=== PATIENT | female | born 1970 | race Caucasian/White ===

== ENCOUNTER 2019-04-09 17:57 | Emergency (ER) | payer BC ==
[2019-04-09 18:21] VITALS: BMI 24.0
--- NOTE | 2019-04-09 19:41 | PDOC ---
History of Present Illness <LowePaola - Last Filed: 04/10/19 01:46> - History of Present Illness Initial Comments: 04/09/19 20:01 48y/o F with a hx of TB (10yrs ago underwent 6mths of treatment) presents to the ED with 6 days of dry cough and shortness of breath.She does not have a hx of smoking. She has pressure like tightness in her chest and throbbing pain in her left upper back. The pain is exacerbated by breathing and movement and relieved with rest. She had an x-ray done at an urgent care center today which showed a left sided mass and she was advised to come to the ED. She has had fever, chills, myalgias, diaphoresis and nausea at home.She denies any vomiting, dysuria, hematuria. leg swelling,diarrhea or blood in her stool. <Maryann Doyle - Last Filed: 04/10/19 02:38> - General Chief Complaint: Shortness of Breath Stated Complaint: DIFFICULTY BREATHING Time Seen by Provider: 04/09/19 19:09 Past History <MynorPaola - Last Filed: 04/10/19 01:46> - Past Medical History COPD: No GI Disorders: Yes (GERD) - Suicide/Smoking/Psychosocial Hx Smoking History: Never smoked Have you smoked in the past 12 months: No Information on smoking cessation initiated: No Hx Alcohol Use: No Drug/Substance Use Hx: No <Maryann Doyle - Last Filed: 04/10/19 02:38> - Past Medical History Allergies/Adverse Reactions: Allergies Allergy/AdvReac Type Severity Reaction Status Date / Time morphine Allergy Verified 04/09/19 18:11 Home Medications: Ambulatory Orders NK [No Known Home Medication] 04/10/19 Review of Systems - Review of Systems Constitutional: Yes: Chills, Diaphoresis, Fever, Loss of Appetite HEENTM: No: Ear Discharge, Nose Congestion, Mouth Swelling Respiratory: Yes: See HPI Cardiac (ROS): Yes: Lightheadedness ABD/GI: Yes: Nausea, Poor Appetite, Abdominal cramping. No: Constipated, Diarrhea, Vomiting : No: Burning, Dysuria, Frequency, Hematuria Musculoskeletal: No: Back Pain Integumentary: No: Dryness, Erythema, Flushing Neurological: Yes: Headache All Other Systems: Reviewed and Negative <Maryann Doyle - Last Filed: 04/10/19 02:38> *Physical Exam - Vital Signs Last Vital Signs Temp Pulse Resp BP Pulse Ox 98.5 F 94 H 16 113/77 100 04/09/19 17:57 04/09/19 17:57 04/09/19 17:57 04/09/19 17:57 04/09/19 17:57 <Paola Lowe - Last Filed: 04/10/19 01:46> - Vital Signs Last Vital Signs Temp Pulse Resp BP Pulse Ox 98.5 F 94 H 16 113/77 100 04/09/19 17:57 04/09/19 17:57 04/09/19 17:57 04/09/19 17:57 04/09/19 17:57 - Physical Exam General Appearance: Yes: Nourished, Appropriately Dressed HEENT: positive: Normal Voice. negative: Scleral Icterus (R), Scleral Icterus ( L), Nasal Congestion, Rhinorrhea Neck: positive: Trachea midline, Supple. negative: Tender, Lymphadenopathy (R) Respiratory/Chest: positive: Normal Breath Sounds, Other (minimal expiratory wheezing on the left side.). negative: Respiratory Distress, Rapid RR, Decreased Breath Sounds, Rales, Rhonchi, Stridor Cardiovascular: positive: Regular Rhythm, Regular Rate, S1, S2. negative: Edema , JVD, Murmur Gastrointestinal/Abdominal: positive: Normal Bowel Sounds, Soft, Tenderness. negative: Organomegaly, Pulsatile Mass, Guarding, Rebound Extremity: positive: Normal Inspection, Normal Range of Motion. negative: Coldness, Cyanosis, Swelling Integumentary: positive: Normal Color, Dry, Warm Neurologic: positive: Fully Oriented, Alert, Normal Mood/Affect, Normal Response <Maryann Doyle - Last Filed: 04/10/19 02:38> ED Treatment Course - LABORATORY CBC & Chemistry Diagram: 04/09/19 20:45 04/09/19 20:45 - ADDITIONAL ORDERS Additional order review: Laboratory Results 04/09/19 04/09/19 20:45 20:45 Sodium 137 Potassium 4.2 Chloride 105 Carbon Dioxide 26 Anion Gap 6 L BUN 9.4 Creatinine 0.7 Est GFR (CKD-EPI)AfAm 120.43 Est GFR (CKD-EPI)NonAf 103.90 Random Glucose 77 Calcium 8.8 Total Bilirubin 0.5 AST 13 L ALT 18 Alkaline Phosphatase 81 Creatine Kinase 48 Troponin I < 0.02 Total Protein 7.1 Albumin 3.4 Urine HCG, Qual Negative 04/09/19 20:45 RBC 4.71 MCV 86.4 MCHC 34.3 RDW 13.6 MPV 6.8 L Neutrophils % 69.8 Lymphocytes % 17.6 Monocytes % 11.4 H Eosinophils % 0.8 Basophils % 0.4 - Medications Given in the ED: ED Medications Discontinued Medications Generic Name Dose Route Start Last Admin Trade Name Freq PRN Reason Stop Dose Admin Acetaminophen 1,000 mg 04/09/19 19:59 04/09/19 21:00 Ofirmev Injection - IVPB 04/09/19 20:00 1,000 mg ONCE ONE Administration Sodium Chloride 1,000 mls @ 1,000 mls/hr 04/09/19 19:59 04/09/19 20:59 Normal Saline - IV 04/09/19 20:58 1,000 mls/hr ASDIR STA Administration <Paola Lowe - Last Filed: 04/10/19 01:46> - LABORATORY CBC & Chemistry Diagram: 04/09/19 20:45 04/09/19 20:45 <Maryann Doyle - Last Filed: 04/10/19 02:38> Medical Decision Making - Medical Decision Making 04/09/19 20:32 48 y/o F with hx of TB presenting with SOB and dry cough Labs/Imaging cbc, cmp, cardiac profile , hcg, ekg acetaminophen for pain and IV fluids 04/09/19 22:51 ct chest with contrast ordered, pt. going to CT. 04/09/19 23:28 CXR shows apical hyperlucent area in left lung. Awaiting CT results at this time. Radiologist recommends follow up with senior [employer] administrator for biopsy of left apical lung mass. Results were explained to the patient and she was given a copy of the imaging report. she was advised to follow up with her senior [employer] administrator. Discharging home 04/10/19 02:36 <Maryann Doyle - Last Filed: 04/10/19 02:38> *DC/Admit/Observation/Transfer <Paola Lowe - Last Filed: 04/10/19 01:46> <Maryann Doyle - Last Filed: 04/10/19 02:38> Diagnosis at time of Disposition: Lung mass - Discharge Dispostion Disposition: HOME Condition at time of disposition: Stable - Referrals Referrals: Kojo Mccormick MD, MD [Staff Physician] - - Patient Instructions Printed Discharge Instructions: Needle Biopsy of the Lung and Pleura
[2019-04-09] MEDS ORDERED: ACETAMINOPHEN 1000 MG/100 ML VIAL (NON FORMULARY) IVPB ONE (19:59)
[2019-04-09] MEDS ORDERED: SODIUM CHLORIDE 1,000 ML IV STA (19:59)
[2019-04-09] MEDS ORDERED: ACETAMINOPHEN INJECTION 100 ML IVPB ONE (20:26)
[2019-04-09 22:16] LABS: BASO % 0.4 % (0-2.0); EOS % 0.8 % (0-4.5); HEMATOCRIT 40.7 % (32.4-45.2); HEMOGLOBIN 13.9 GM/dL (10.7-15.3); LYMPH % 17.6 % (8-40); MCH 29.6 pg (25.7-33.7); MCHC 34.3 g/dl (32.0-36.0); MEAN CELL VOLUME 86.4 fl (80-96); MEAN PLT VOLUME 6.8 fl (7.5-11.1); MONO % 11.4 % (3.8-10.2); NEUT % 69.8 % (42.8-82.8); PLATELET COUNT 407 K/MM3 (134-434); RBC 4.71 M/mm3 (3.60-5.2); RDW 13.6 % (11.6-15.6); WHITE BLOOD COUNT 8.1 K/mm3 (4.0-10.0)
[2019-04-09 22:18] LABS: ALBUMIN 3.4 g/dl (3.4-5.0); ALK PHOS 81 U/L (45-117); ANION GAP 6 MMOL/L (8-16); BILIRUBIN,TOTAL 0.5 mg/dL (0.2-1); BLOOD UREA NITROGEN 9.4 mg/dL (7-18); CALCIUM 8.8 mg/dL (8.5-10.1); CHLORIDE 105 mmol/L (98-107); CO2 26 mmol/L (21-32); CREATININE 0.7 mg/dL (0.55-1.3); GLUCOSE,RANDOM 77 mg/dL (74-106); POTASSIUM 4.2 mmol/L (3.5-5.1); SGOT/AST 13 U/L (15-37); SGPT/ALT 18 U/L (13-61); SODIUM 137 mmol/L (136-145); TOT PROT 7.1 g/dl (6.4-8.2)
--- NOTE | 2019-04-10 01:48 | PDOC ---
Documentation entered by Ayaan Barnhart SCRIBE, acting as scribe for Paola Lowe MD. Paola Lowe MD: This documentation has been prepared by the Obey sagastume Joel, SCRIBE, under my direction and personally reviewed by me in its entirety. I confirm that the documentation accurately reflects all work, treatment, procedures, and medical decision making performed by me. Attending Attestation - Resident Resident Name: Maryann Doyle - ED Attending Attestation I have performed the following: I have examined & evaluated the patient, The case was reviewed & discussed with the resident, I agree w/resident's findings & plan - HPI HPI: 04/09/19 20:45 The patient is a 48 year old female with a significant PMH of TB (s/p 6 months of treatment) and GERD who presents to the emergency department for evaluation of a dry nonproductive cough with associated left posterior chest wall pain and rhinorrhea. The patient states going to Urgent Care and receiving a CXR, after which they prompted her to come to the ED. She states her symptoms do not feel similar to her prior TB. The patient denies headache and dizziness. Denies fever, chills, nausea, vomit, diarrhea and constipation. Denies dysuria, frequency, urgency and hematuria. Allergies: Morphine Past surgical history: None reported. Social history: No reported cigarette, alcohol, or drug use. - Physicial Exam PE: 04/09/19 23:20 GENERAL: Awake, alert, and fully oriented, in no acute distress. HEAD: No signs of trauma EYES: PERRLA, EOMI, sclera anicteric, conjunctiva clear ENT: Auricles normal inspection, hearing grossly normal, nares patent, oropharynx clear without exudates. Moist mucosa NECK: Nontender, no stepoffs, Normal ROM, supple, no lymphadenopathy, JVD, or masses LUNGS: Breath sounds equal, clear to auscultation bilaterally. No wheezes, and no crackles HEART: Regular rate and rhythm, normal S1 and S2, no murmurs, rubs or gallops ABDOMEN: Soft, nontender, normoactive bowel sounds. No guarding, no rebound. No masses EXTREMITIES: Normal range of motion, no edema. No clubbing or cyanosis. No cords , erythema, or tenderness NEUROLOGICAL: Cranial nerves II through XII intact. 5/5 strength and sensation in all extremities, Normal speech, normal gait, normal cerebellar function SKIN: Warm, Dry, normal turgor, no rashes or lesions noted. - Medical Decision Making 04/10/19 02:21 Patient Name: UYEN CAR THIS IS A PRELIMINARY REPORT FROM [facility] DATE OF SERVICE: 2019-04-09 23:26:18 IMAGES: [id number] EXAM: CHEST CT WITH CONTRAST HISTORY: Chest pain. COMPARISON: None. FINDINGS: An enhancing mass is seen in the left upper lobe, abutting the superior mediastinum, measuring 7.4 x 4.4 x 8.2 cm. Enlarged AP window lymph node is seen, measuring 1.7 x 0.9 cm. Central calcifications are seen in this mass. Left upper lobe bronchiectasis is seen. Few nodules are seen in the superior segment of the right lower lobe, the largest measuring 5 mm. Calcified nodule seen in the posterior right lower lobe. Partially calcified nodules are seen in the posterior left upper lobe. No airspace consolidation, pleural effusion, or pneumothorax. No suspicious axillary or right hilar nodes. No acute abnormalities of the thoracic aorta. Pulmonary arteries are normal in size. Heart is normal in size without pericardial effusion. Ill-defined hypodensity with possible peripheral globular enhancement is seen in the right hepatic lobe, measuring 1.7 x 1.6 cm on image 86. The remaining upper abdominal structures are grossly unremarkable. There are no acute osseous abnormalities. IMPRESSION: 1. Enhancing mass in the medial left upper lobe abutting the superior mediastinum with central dystrophic calcifications and AP window lymphadenopathy. Multiple calcified nodules and scarring are seen in the posterior left upper lobe. Benign and malignant etiologies are possible. Recommend pulmonology consultation and tissue sampling. 2. Indeterminate hypodense lesion in the right hepatic lobe which may represent hemangioma given question of peripheral globular enhancement. This could be further evaluated with ultrasound or multiphase imaging of the liver with CT or MRI. 04/10/19 04:57 Pt will follow with pulm for needle biopsy and further eval as needed.
[2019-04-10 02:44] VITALS: BP 107/57; PULSE 68; TEMP 98.2
== END 2019-04-10 02:43 | disposition home or self-care (01) ==
LOC: JER 17:57
PROC: 3E0337Z Introduction of Electrolytic and Water Balance Substance into Peripheral Vein, Percutaneous Approach (ICD-10-PCS; principal; 2019-04-09)
PROC: 3E033NZ Introduction of Analgesics, Hypnotics, Sedatives into Peripheral Vein, Percutaneous Approach (ICD-10-PCS; 2019-04-09)
DX: R91.8 Other nonspecific abnormal finding of lung field (principal); Z86.11 Personal history of tuberculosis
CPT/HCPCS: 36415; 71045-TC-FY; 71260-TC; 80053; 82550; 84484; 84703; 85025; 99283-25; J0131; J7030